=== PATIENT | male | born 1985 ===

== ENCOUNTER 2021-08-06 20:46 | Emergency (ER) | payer OTHER | END 2021-08-06 22:05 | disposition home or self-care (01) | LOC: ERS 20:46 | DX: S42.021A Displaced fracture of shaft of right clavicle, initial encounter for closed fracture (principal); W21.02XA Struck by soccer ball, initial encounter; Y93.66 Activity, soccer ==

== ENCOUNTER 2021-08-08 10:18 | Outpatient (CLI) | payer OTHER ==
[2021-08-08 17:40] LABS: SARS-CoV-2 PCR by NAA DETECTED (NotDetected)
== END 2021-08-08 10:19 | disposition home or self-care (01) ==
LOC: LABBT 10:18
PROVIDERS: ATTEND Orthopaedic Surgery
DX: U07.1 COVID-19 (principal); Z01.812 Encounter for preprocedural laboratory examination; S42.001A Fracture of unspecified part of right clavicle, initial encounter for closed fracture
CPT/HCPCS: U0003; U0005

== ENCOUNTER 2021-08-09 12:14 | Outpatient (CLI) | payer OTHER ==
[2021-08-09 18:44] LABS: SARS-CoV-2 PCR by NAA Not Detected (NotDetected)
== END 2021-08-09 12:15 | disposition home or self-care (01) ==
LOC: LABBT 12:14
PROVIDERS: ATTEND Orthopaedic Surgery
DX: Z01.812 Encounter for preprocedural laboratory examination (principal); Z20.822 Contact with and (suspected) exposure to COVID-19
CPT/HCPCS: U0003; U0005

== ENCOUNTER 2021-08-10 06:01 | Day surgery (SDC) | payer OTHER ==
[2021-08-08 15:23] VITALS: BMI 29.2
[2021-08-10] MEDS ORDERED: Bupivacaine PF 0.5% 30 ML VIAL ONE (06:27)
[2021-08-10] MEDS ORDERED: Midazolam HCl 2 mg/2 ml Vial ONE (06:52)
[2021-08-10] MEDS ORDERED: ceFAZolin 2 GM/Dextrose 50 ML IVPB ONE (07:06)
[2021-08-10] MEDS ORDERED: Bupivacaine HCl 0.5%/Epinephrine 1:200,000/PF 30 ml Vial ONE (07:10)
[2021-08-10] MEDS ORDERED: Rocuronium Bromide 10 MG/ML (10ML VIAL) ONE (07:56)
[2021-08-10] MEDS ORDERED: Lidocaine 1% PF 5 ML VIAL ONE (07:56)
[2021-08-10] MEDS ORDERED: Glycopyrrolate 0.2 MG/ML 5 ML SYRINGE ONE (07:56)
[2021-08-10] MEDS ORDERED: Ketorolac Tromethamine 30 MG/ML VIAL ONE (07:56)
[2021-08-10] MEDS ORDERED: PROPOFOL 200 MG/20 ML VIAL ONE (07:56)
[2021-08-10] MEDS ORDERED: Ondansetron PF 4 MG/2 ML Vial ONE (07:56)
[2021-08-10] MEDS ORDERED: Fentanyl 100 MCG/2 ML VIAL ONE (08:19)
[2021-08-10] MEDS ORDERED: HYDROcodone/Acetaminophen 5/325 mg Tablet ONE (11:42)
== END 2021-08-10 12:00 | disposition home or self-care (01) ==
LOC: SDC 06:01
PROVIDERS: ATTEND Orthopaedic Surgery
PROC: 0PS904Z Reposition Right Clavicle with Internal Fixation Device, Open Approach (ICD-10-PCS; principal; 2021-08-10)
DX: S42.021A Displaced fracture of shaft of right clavicle, initial encounter for closed fracture (principal); W51.XXXA Accidental striking against or bumped into by another person, initial encounter; Y93.66 Activity, soccer
CPT/HCPCS: 76000; C1713; C1874; J0690; J1885; J2250; J2405; J2704; J3010; S0020